=== PATIENT | female | born 2000 | race Asian ===

== ENCOUNTER 2019-08-30 19:43 | Emergency (ER) | payer OTHER ==
[~2019-08-30] VITALS: Ht 160 cm; Wt 57.5 kg
[2019-08-30 21:43] VITALS: BP 121/70
== END 2019-08-30 21:44 | disposition home or self-care (01) ==
LOC: ER 19:43
DX: G62.9 Polyneuropathy, unspecified (principal); M79.604 Pain in right leg; R20.0 Anesthesia of skin; R10.30 Lower abdominal pain, unspecified; Z88.1 Allergy status to other antibiotic agents; Z98.890 Other specified postprocedural states
CPT/HCPCS: 93970; 99284; L0172